=== PATIENT | male | born 1975 | race Caucasian/White ===

== ENCOUNTER 2023-09-30 11:59 | Outpatient (CLI) | payer BC, SELFPAY ==
--- NOTE | ~2023-09-30 | XR_ITS ---
XR lumbar spine min 4V DATE: 09/30/2023 12:29 INDICATION: Right low back pain, with right lower extremity radiculopathy TECHNIQUE: AP, bilateral oblique, lateral and coned lateral lumbosacral views COMPARISON: None FINDINGS: There is normal alignment of the lumbar spine. There is moderate degenerative disc disease and slight retrolisthesis at L3-4 and L4-5. No fracture or bone destruction. The lumbar pedicles are intact.' There is prominent degenerative change at the lower lumbar and lumbosacral apophyseal joints. No ant erolisthesis or spondylosis. The sacroiliac joints are intact. IMPRESSION: Mild to moderate lumbar spondylosis Reviewed, dictated and finalized at [facility]. Reviewed, dictated and finalized at [facility].
== END 2023-09-30 12:00 ==
PROVIDERS: PCP Chiropractor; Visit Provider Chiropractor
DX: M47.816 Spondylosis without myelopathy or radiculopathy, lumbar region (principal)
CPT/HCPCS: 72110

== ENCOUNTER 2023-11-16 12:40 | Outpatient (CLI) | payer BC, SELFPAY ==
--- NOTE | ~2023-11-16 | MR_ITS ---
EXAMINATION: MR lumbar spine wo con DATE: 11/16/2023 13:09 INDICATION: Low back pain radiating to the right lower limb. TECHNIQUE: Magnetic resonance imaging (MRI) of the lumbar spine was performed without intravenous con trast. Sequences included sagittal T2-weighted FSE, sagittal T2-weighted FS FSE, sagittal T1-weighted FSE, and axial T2-weighted FSE. COMPARISON: Lumbar spine radiographs 09/30/2023 FINDINGS: There is 5 degrees levocurvature of lumbar spine. There are Schmorl's nodes at many levels. There is mildly decreased disc height at L4-L5. The distal spinal cord signal intensity is normal. T he conus medullaris is at T12-L1. The following disc levels are specifically discussed: L1-L2: The disc does not extend beyond the endplate margin. There is mild bilateral facet joint osteo arthritis. There is no neural foraminal stenosis. There is no central canal stenosis. L2-L3: The disc does not extend beyond the endplate margin. There is mild bilateral facet joint osteo arthritis. There is no neural foraminal stenosis. There is no central canal stenosis. L3-L4: The disc is bulging. There is mild bilateral facet joint osteoarthritis. There is mild bilater al neural foraminal stenosis. There is no central canal stenosis. L4-L5: The disc is bulging with superimposed right subarticular zone extrusion with mass effect on ri ght L5 nerve root. There is mild bilateral facet joint osteoarthritis. There is moderate right and mi ld left neural foraminal stenosis. There is mild central canal stenosis. There is severe stenosis of right lateral recess. L5-S1: The disc is mildly bulging. There is moderate bilateral facet joint osteoarthritis. There is m ild bilateral neural foraminal stenosis. There is mild central canal stenosis. IMPRESSION: 1. Moderate spondylosis at L4-L5 and mild spondylosis at other levels. Reviewed, dictated and finalized at location [facility].
== END 2023-11-16 12:41 | disposition home or self-care (01) ==
LOC: GOSHIMG 12:42
PROVIDERS: PCP Pediatrics; Visit Provider Chiropractor
DX: M54.41 Lumbago with sciatica, right side (principal); M47.896 Other spondylosis, lumbar region
CPT/HCPCS: 72148